=== PATIENT | male | born 1960 | race African-American/Black ===

== ENCOUNTER 2016-07-24 21:36 | Emergency (ER) | payer OTHER ==
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
== END 2016-07-25 01:25 | disposition home or self-care (01) ==
LOC: CED 21:36
DX: S01.81XA Laceration without foreign body of other part of head, initial encounter (principal); S01.412A Laceration without foreign body of left cheek and temporomandibular area, initial encounter; I10 Essential (primary) hypertension; F17.200 Nicotine dependence, unspecified, uncomplicated; Y04.0XXA Assault by unarmed brawl or fight, initial encounter; Y92.009 Unspecified place in unspecified non-institutional (private) residence as the place of occurrence of the external cause
CPT/HCPCS: 12013; 70450; 70486; 72125; 99284